=== PATIENT | female | born 1990 | race Caucasian/White ===

== ENCOUNTER 2018-11-06 12:01 | Emergency (ER) | payer MEDICAID, OTHER ==
[2018-11-06 12:08] VITALS: BP 121/88
--- NOTE | 2018-11-06 12:27 | EDPHY ---
H & P Time Seen by Provider: 11/06/18 12:12 HPI/ROS: CHIEF COMPLAINT: "I just do not want to do this anymore HISTORY OF PRESENT ILLNESS: 28-year-old female history of heavy daily vodka use , to continue to the ER requesting detoxification from alcohol. She denies suicidal or homicidal ideation. Denies complaints of pain or discomfort. Denies hallucination. Denies suicidal or homicidal ideation. REVIEW OF SYSTEMS: 10 systems reviewed and negative with the exception of the elements mentioned in the history of present illness PAST MEDICAL/SURGICAL HISTORY: no anticoagulant use, no relevant medical/ surgical history SOCIAL HISTORY: Heavy daily alcohol use PHYSICAL EXAM 1) GENERAL: Well-developed, well-nourished, alert and oriented. Crying. Answering questions appropriately.. Tremulous 2) HEAD: Normocephalic, atraumatic 3) HEENT: Pupils equal, round, reactive to light bilaterally. Negative Horners. Nasopharynx, oropharynx, clear. No deformity or angulation of nose. No septal hematoma. No rhinorrhea. No oral trauma. Ears bilaterally with normal tympanic membranes. No hemotympanum. No fluid or blood in the external auditory canal. No raccoon eyes. No Champagne sign. Teeth are normally aligned with no gross malocclusion, TMJ bilaterally nontender, facial bones nontender including the zygomatic arch, maxilla mandible. 4) NECK: Posterior cervical spine is nontender, no stepoff, no effusion. Full range of motion which does not elicit any midline cervical spine pain, no posterior midline tenderness, no step-off. 5) LUNGS: Clear to auscultation bilaterally, no wheezes, no rhonchi, no retractions. No obvious signs of trauma. No chest wall pain. No flaring, no grunting. Moving symmetrically. No crepitus. 6) HEART: [Regular rate and rhythm, 7) ABDOMEN: No guarding, no rebound, no focal tenderness, no peritoneal signs, no signs of trauma, no ecchymosis 8) MUSCULOSKELETAL: Moving all extremities, no focal areas of tenderness, no obvious trauma. 9) BACK: No midline vertebral tenderness, no fluctuance, no step-off, no obvious trauma, no visual or palpable abnormality. 10) SKIN: No laceration. No abrasion DIFFERENTIAL DIAGNOSIS: [In no particular order including but not limited to acute alcohol withdrawal, alcoholic hallucinosis, delirium tremens. Smoking Status: Current every day smoker Constitutional: Initial Vital Signs Temperature (C) 37 C 11/06/18 12:01 Heart Rate 90 11/06/18 12:01 Respiratory Rate 16 11/06/18 12:01 Blood Pressure 121/88 H 11/06/18 12:01 O2 Sat (%) 95 11/06/18 12:01 Home Medications: Medication Instructions Recorded Clonazepam 11/06/18 MDM/Departure - [facility] ED Course/Re-evaluation: 12:25 p.m.:: Doubt delirium tremens. Patient would like to go to the [facility]. She will be given Librium and discharge to addiction recovery Center. Denies suicidal or homicidal ideation. Patient feels comfortable being discharged. All questions and concerns addressed by myself. Patient given my usual and customary discharge precautions and instructions regarding their clinical impression. Care of patient under supervision of secondary supervising physician Dr Toño Ching. - Depart Disposition: Home, Routine, Self-Care Clinical Impression: Alcohol withdrawal Qualifiers: Complication of substance-induced condition: uncomplicated Qualified Code(s): F10.230 - Alcohol dependence with withdrawal, uncomplicated Condition: Good Instructions: Alcohol Withdrawal (ED), Chlordiazepoxide (By mouth) Referrals: [facility] 24 Hours [Outside] - As per Instructions (Go directly to the the Addiction recovery center)
[2018-11-06] MEDS: CHLORDIAZEPOXIDE 25MG PREPK#6 BTL TAKEHOME ONE ×2 (12:37→12:40)
== END 2018-11-06 12:43 | disposition home or self-care (01) ==
DX: F10.230 Alcohol dependence with withdrawal, uncomplicated (principal)